=== PATIENT | female | born 1985 | race Caucasian/White ===

== ENCOUNTER 2021-12-23 09:36 | Emergency (ER) | payer MEDICAID ==
[~2021-12-23] VITALS: Ht 170.2 cm; Wt 103.9 kg
[2021-12-23 10:33] VITALS: BP 92/31
== END 2021-12-23 12:13 | disposition home or self-care (01) ==
LOC: ER 09:36
DX: S86.912A Strain of unspecified muscle(s) and tendon(s) at lower leg level, left leg, initial encounter (principal); Z86.718 Personal history of other venous thrombosis and embolism
CPT/HCPCS: 93971